=== PATIENT | female | born 1990 | race African-American/Black ===

== ENCOUNTER 2020-04-15 07:52 | Inpatient (IN) | payer MEDICAID ==
[~2020-04-15] VITALS: Ht 165.1 cm; Wt 106.6 kg
[2020-04-15] MEDS ORDERED: CARBOPROST TROMETHAMINE 250 MCG/ML AMPUL IM PRN (08:15)
[2020-04-15] MEDS ORDERED: METHYLERGONOVINE MALEATE 0.2 MG/ML IM PRN (08:15)
[2020-04-15] MEDS ORDERED: NALOXONE HCL 0.4 MG/ML 1ML VIAL IM PRN (08:15)
[2020-04-15] MEDS ORDERED: MISOPROSTOL 100MCG TABLET VG PRN (08:15)
[2020-04-15] MEDS ORDERED: BUTORPHANOL TARTRATE 2 MG/ML VIAL IV PRN (08:15)
[2020-04-15] MEDS ORDERED: LIDOCAINE HCL 1% 20ML VIAL (Pyxis) INJ INFIL PRN (08:15)
[2020-04-15] MEDS ORDERED: DEXT 5%/LR + PITOCIN 20UNITS/L 1,000 ML IV SCH ×2 (08:32→08:54)
[2020-04-15] MEDS ORDERED: LACTATED RINGERS 1,000 ML IV SCH (08:33)
[2020-04-15 08:54] LABS: BASOPHILS % 0.8 % (0.0-2.0); EOSINOPHILS % 0.8 % (0.0-5.0); HEMATOCRIT. 36.7 % (36.0-48.0); HEMOGLOBIN. 12.3 g/dL (12.0-16.0); LYMPHOCYTES % 17.8 % (20.0-50.0); MEAN CORPUSCULAR HEMOGLOBIN 28.9 pg (28.0-32.0); MEAN CORPUSCULAR VOLUME 85.9 fL (81.0-99.0); MEAN PLATELET VOLUME 9.1 fl (7.4-10.4); MONOCYTES % 5.9 % (2.0-8.0); NEUTROPHILS % 74.7 % (40.0-76.0); PLATELET 300 x1000/uL (130-400); RED BLOOD CELL COUNT 4.27 mill/uL (4.2-5.4); RED CELL DISTRIBUTION WIDTH 13.1 % (11.6-14.6)
[2020-04-15 08:58] LABS: CLARITY URINE CLEAR (CLEAR); COLOR URINE ORANGE (YELLOW); KETONES URINE 2+ (NEGATIVE); LEUKOCYTE ESTERASE URINE 1+ (NEGATIVE); NITRITE URINE NEGATIVE (NEGATIVE); OCCULT BLOOD URINE 3+ (NEGATIVE); PH URINE 6.5 (4.5-8.0); PROTEIN URINE TRACE (NEGATIVE); SPECIFIC GRAVITY URINE 1.021 (1.005-1.030)
[2020-04-15 09:00] LABS: PARTIAL THROMBOPLASTIN TIME 28.7 sec (23.4-31.0); PROTHROMBIN TIME 10.3 sec (9.6-11.0)
[2020-04-15] MEDS ORDERED: IBUPROFEN 800MG TABLET PO PRN (09:00)
[2020-04-15] MEDS ORDERED: ACETAMINOPHEN WITH CODEINE 300/30MG TABLET PO PRN (09:00)
[2020-04-15] MEDS ORDERED: PRENATAL VIT/FE FUMARATE/FA TABLET PO SCH (09:00)
[2020-04-15] MEDS ORDERED: SIMETHICONE 80MG TABLET CHEW PO SCH (09:00)
[2020-04-15] MEDS ORDERED: BISACODYL 10MG SUPP PR PRN (09:00)
[2020-04-15] MEDS ORDERED: GLYCERIN/WITCH HAZEL LEAF MEDICATED PAD TOP PRN (09:00)
[2020-04-15] MEDS ORDERED: LANOLIN OINT 7GM TUBE TOP PRN (09:00)
[2020-04-15] MEDS ORDERED: DIPHENHYDRAMINE 25MG CAPSULE PO PRN (09:00)
[2020-04-15] MEDS ORDERED: RHO(D) IMMUNE GLOBULIN 300 MCG/SYR IM PRN (09:00)
[2020-04-15] MEDS ORDERED: HEMORRHOIDAL SUPP PR PRN (09:00)
[2020-04-15] MEDS ORDERED: IBUPROFEN 400MG TABLET PO PRN (09:00)
[2020-04-15] MEDS ORDERED: PENICILLIN G POTASSIUM 5 MMU in DEXT 5% WATER 100 ML IV SCH (09:00)
[2020-04-15 09:37] LABS: *AMPHETAMINES SCREEN URINE NEGATIVE (NEGATIVE); *BARBITURATES SCREEN URINE NEGATIVE (NEGATIVE); *BENZODIAZEPINES SCREEN URINE NEGATIVE (NEGATIVE)
[2020-04-15 09:38] LABS: *COCAINE SCREEN URINE NEGATIVE (NEGATIVE); CANNABINOID URINE SCREEN NEGATIVE (NEGATIVE); METHADONE URINE SCREEN NEGATIVE (NEGATIVE); OPIATES URINE SCREEN NEGATIVE (NEGATIVE); PHENCYCLIDINE URINE SCREEN NEGATIVE (NEGATIVE)
[2020-04-15 10:30] VITALS: BP 113/61
[2020-04-15 11:30] VITALS: BP 109/55
[2020-04-15 11:32] LABS: HEPATITIS B SURFACE ANTIGEN NEGATIVE
[2020-04-15] MEDS ORDERED: PENICILLIN G POTASSIUM 2.5 MMU in DEXTROSE 5% WATER 50 ML IV SCH (13:00)
[2020-04-15 16:00] VITALS: BP 111/67
[2020-04-15 20:30] VITALS: BP 98/60
[2020-04-15] MEDS ORDERED: DOCUSATE SODIUM 100MG CAPSULE PO SCH (21:00)
[2020-04-16 05:00] VITALS: BP 96/58
[2020-04-16 07:28] LABS: BASOPHILS % 0.7 % (0.0-2.0); EOSINOPHILS % 1.3 % (0.0-5.0); HEMATOCRIT. 34.5 % (36.0-48.0); HEMOGLOBIN. 11.4 g/dL (12.0-16.0); LYMPHOCYTES % 21.9 % (20.0-50.0); MEAN CORPUSCULAR HEMOGLOBIN 28.9 pg (28.0-32.0); MEAN CORPUSCULAR VOLUME 87.6 fL (81.0-99.0); MEAN PLATELET VOLUME 9.1 fl (7.4-10.4); MONOCYTES % 6.5 % (2.0-8.0); NEUTROPHILS % 69.6 % (40.0-76.0); PLATELET 275 x1000/uL (130-400); RED BLOOD CELL COUNT 3.94 mill/uL (4.2-5.4); RED CELL DISTRIBUTION WIDTH 13.4 % (11.6-14.6)
[2020-04-16 08:00] VITALS: BP 114/62
[2020-04-16] MEDS ORDERED: FERR325T23 PO (08:00)
[2020-04-16] MEDS ORDERED: IBUP-2030 PO (08:00)
[2020-04-16] MEDS ORDERED: FERROUS SULFATE 325MG TABLET PO SCH (09:00)
== END 2020-04-16 12:00 | disposition home or self-care (01) | DRG 560 ==
LOC: 8 EST A/PP 07:52 → OBSVTOIN 07:52
PROVIDERS: ADMIT Specialist; ATTEND Specialist
PROC: 10E0XZZ Delivery of Products of Conception, External Approach (ICD-10-PCS; principal; 2020-04-15)
PROC: 3E0234Z Introduction of Serum, Toxoid and Vaccine into Muscle, Percutaneous Approach (ICD-10-PCS; 2020-04-15)
DX: O26.899 Other specified pregnancy related conditions, unspecified trimester (principal); Z37.0 Single live birth; Z83.3 Family history of diabetes mellitus; Z67.21 Type B blood, Rh negative; Z3A.00 Weeks of gestation of pregnancy not specified
CPT/HCPCS: 36415; 80051; 80305; 81003; 85025; 86592; 86703; 86762; 86850; 86886; 86900; 87340; 90384; 94760; 99281; J2540; J7060

== ENCOUNTER 2025-06-14 13:25 | Emergency (ER) | payer MEDICAID, OTHER ==
[~2025-06-14] VITALS: Ht 175.3 cm; Wt 107.0 kg
[~2025-06-14 13:25] MED LIST: FERR325T23 PO; IBUP-2030 PO
[2025-06-14 13:36] VITALS: BP 110/58; PULSE 77; RESP 18; TEMP 37; O2SAT 98
[2025-06-14] MEDS: IBUPROFEN 400MG TABLET PO ONE (17:22)
[2025-06-14] MEDS ORDERED: IBUP-2028 MT (18:20)
== END 2025-06-14 18:33 | disposition home or self-care (01) ==
LOC: ER 13:25
DX: R07.89 Other chest pain (principal); Z79.899 Other long term (current) drug therapy
CPT/HCPCS: 71111; 99283